=== PATIENT | male | born 2005 | race American Indian/Alaskan Native ===

== ENCOUNTER 2024-06-06 13:12 | Emergency (ER) | payer MEDICAID, OTHER ==
[~2024-06-06] VITALS: Ht 172.7 cm; Wt 72.5 kg
[2024-06-06 14:15] VITALS: PULSE 82; RESP 17; O2SAT 98
[2024-06-06 14:37] VITALS: BP 130/68; TEMP 98.2
[2024-06-06 14:42] VITALS: PULSE 89; RESP 16; O2SAT 100
[2024-06-06] MEDS: IBUPROFEN 600 MG TAB PO ONE (15:04)
[2024-06-06] MEDS ORDERED: IBUP-1454 PO (15:12)
== END 2024-06-06 15:25 | disposition home or self-care (01) ==
LOC: ER 13:12
DX: S52.125A Nondisplaced fracture of head of left radius, initial encounter for closed fracture (principal); W18.39XA Other fall on same level, initial encounter; Y93.01 Activity, walking, marching and hiking; Y92.89 Other specified places as the place of occurrence of the external cause; Y99.8 Other external cause status
CPT/HCPCS: 29105; 73080